=== PATIENT | male | born 1995 | race Caucasian/White ===

== ENCOUNTER 2019-12-21 15:32 | Emergency (ER) | payer SELFPAY ==
[2019-12-21 15:39] VITALS: BP 141/71
[2019-12-21] MEDS ORDERED: DIPH/PERTUSS(ACELL)/TETANUS VAC/PF 0.5 ML SYR (>=10YO) IM ONE (15:40)
--- NOTE | 2019-12-21 15:47 | ER Document Report ---
HPI - HPI Time Seen by Provider: 12/21/19 15:38 Notes: 23-year-old male presents emergency room for evaluation of a rash to his right groin area that he noticed approximately 2 days ago. Patient states that the extent of ingrown hair. Denies any fevers and chills. Denies any nausea vomiting or diarrhea, denies any issues with bowel or bladder dysfunction. No [id number] medications been tried. No history of MRSA. Denies any chest pain or shortness of breath. Has not had any [id number] medication. Pain is 1 out of 5, achy at times. REVIEW OF SYSTEMS:reviewed vital signs by RN CONSTITUTIONAL : Denies fever, chills, or sweats. Denies recent illness. EENT: Denies eye, ear, throat, or mouth pain or symptoms. Denies nasal or sinus congestion or discharge. Denies throat, tongue, or mouth swelling or difficulty swallowing. CARDIOVASCULAR: Denies chest pain. Denies palpitations or racing or irregular heart beat. Denies ankle edema. RESPIRATORY: Denies cough, cold, or chest congestion. Denies shortness of breath, difficulty breathing, or wheezing. GASTROINTESTINAL: Denies abdominal pain or distention. Denies nausea, vomiting, or diarrhea. Denies blood in vomitus, stools, or per rectum. Denies black, tarry stools. Denies constipation. GENITOURINARY: Denies difficulty urinating, painful urination, burning, frequency, blood in urine, or discharge. MUSCULOSKELETAL: Denies back or neck pain or stiffness. Denies joint pain or swelling. SKIN: reports pimple to right groin area HEMATOLOGIC : Denies easy bruising or bleeding. LYMPHATIC: Denies swollen, enlarged glands. NEUROLOGICAL: Denies confusion or altered mental status. Denies passing out or loss of consciousness. Denies dizziness or lightheadedness. Denies headache. Denies weakness or paralysis or loss of use of either side. Denies problems with gait or speech. Denies sensory loss, numbness, or tingling. Denies seizures. PSYCHIATRIC: Denies anxiety or stress. Denies depression, suicidal ideation, or homicidal ideation. ALL OTHER SYSTEMS REVIEWED AND NEGATIVE. Dictation was performed using [employer] voice recognition software PHYSICAL EXAMINATION: GENERAL: Well-appearing, well-nourished and in no acute distress. HEAD: Atraumatic, normocephalic. EYES: Pupils equal round and reactive to light, extraocular movements intact, sclera anicteric, conjunctiva are normal. ENT: Nares patent, oropharynx clear without exudates. Moist mucous membranes. NECK: Normal range of motion, supple without lymphadenopathy LUNGS: Breath sounds clear to auscultation bilaterally and equal. No wheezes rales or rhonchi. HEART: Regular rate and rhythm without murmurs ABDOMEN: Soft, nontender, nondistended abdomen. No guarding, no rebound. No masses appreciated. Musculoskeletal: Normal range of motion, no pitting or edema. No cyanosis. NEUROLOGICAL: Cranial nerves grossly intact. Normal speech, normal gait. Normal sensory, motor exams PSYCH: Normal mood, normal affect. SKIN: Warm, Dry, normal turgor, no rashes or lesions noted. Right groin with 1 cm x 1 cm area of erythema induration without fluctuance. No surrounding erythema or induration. No lymphadenopathy Past Medical History - General Information source: Patient - Social History Smoking Status: Unknown if Ever Smoked Family History: Reviewed & Not Pertinent - Immunizations Immunizations up to date: Yes Hx Diphtheria, Pertussis, Tetanus Vaccination: No Vertical Provider Document - INFECTION CONTROL TRAVEL OUTSIDE OF THE [place] IN LAST 30 DAYS: No Course - Re-evaluation Re-evalutation: 12/21/19 15:47 Afebrile vital stable no distress. Nurses notes reviewed. Area to right groin marked and advised that if redness extends out of marked area by 1 cm to return to the emergency room for further evaluation and management as he failed outpatient therapy. Apply warm compresses a 20 minutes on 20 minutes off several times a day. Patient will be started on coverage for both staph and strep. At this time will discharge with return precautions and follow-up recommendations. Verbal discharge instructions given a the bedside and opportunity for questions given. Medication warnings reviewed. Patient is in agreement with this plan and has verbalized understanding of return precautions and the need for primary care follow-up in the next 24-72 hours. - Vital Signs Vital signs: Temp Pulse Resp BP Pulse Ox 98 F 85 18 141/71 H 98 12/21/19 15:37 12/21/19 15:37 12/21/19 15:37 12/21/19 15:37 12/21/19 15:37 Discharge - Discharge Clinical Impression: Cellulitis Condition: Stable Disposition: HOME, SELF-CARE Instructions: Clindamycin ([facility]), Cellulitis ([facility]), MRSA Cellulitis ([facility]) Additional Instructions: Take antibiotics every 6 hours as directed with food. Apply warm compress 20 minutes on 20 minutes off several times a day. If redness extends out of marked area by approximately 1 cm return to the emergency room immediately as you will need further evaluation and medical management. If you experience any fevers worsening symptoms, increased pain, redness outside of marked area return to the emergency room immediately. Return immediately for any new or worsening symptoms. Follow up with primary care provider, call tomorrow to make followup appointment. Prescriptions: Clindamycin HCl 300 mg PO Q6H #28 capsule Forms: Return to Work Referrals: JACQUES REYES MD [Primary Care Provider] - Follow up as needed ADRIEL VELASQUEZ MD [ACTIVE STAFF] - Follow up as needed
== END 2019-12-21 16:21 | disposition home or self-care (01) ==
LOC: ER 15:32
DX: L03.90 Cellulitis, unspecified (principal)
CPT/HCPCS: 99281